=== PATIENT | male | born 1945 | race Two or more races ===

== ENCOUNTER → 2016-07-12 | Day surgery (SDC) | payer MEDICARE, MEDICAID ==
[~2016-07-12] VITALS: Ht 177.8 cm; Wt 119.0 kg
[~2016-07-12] MED LIST: ALEVE220 M1 PO; BACTRIM DS1 TAB PO; CARAFATE1 GM PO; CORDARONE,PACE200 MG PO; COREG12.5 MG PO; ELIQUIS5 MG PO; ENTRESTO 49 MG1 EACH PO; K-TAB ER20 MEQ PO; LASIX20 MG PO; LIPITOR80 MG PO; NASAL DECONGEST30 ML NOSE; OCUVITE EYE +1 EACH PO; SLEEP AID25 M1 PO; SPIRIVA HANDIHA1 KIT INH; SYMBICORT 160/41 KIT INH; TYLENOL WITH C1 EACH PO; TYLENOL/COD1 TAB PO
--- NOTE | ~2016-07-12 | OR ---
PATIENT'S NAME: JT WAGNER [facility] AGE: 71 Y [address] ROOM: [place] [address] LOCATION: [facility] [place] ADMIT DATE: 07/12/2016 OR/Procedure Report DISCHARGE DATE: FAMILY PHYSICIAN: John Chong MD ATTENDING PHYSICIAN: Joe Apple SURGEON: Joe Apple MD INK GRINDER: DATE OF PROCEDURE: 07/12/2016 PREOPERATIVE DIAGNOSIS: History of bladder cancer. POSTOPERATIVE DIAGNOSES: 1. Bladder cancer. 2. Bulbourethral stricture. PROCEDURE PERFORMED: Cystoscopy, DVIU, and TURBT with complicated Villaseñor placement. ANESTHESIA: MAC. COMPLICATIONS: None. INDICATION FOR PROCEDURE: The patient is a 71-year-old male with a long history of recurrent superficial bladder cancer. The patient is scheduled for routine followup cystoscopy in the OR. The patient refuses cystoscopy in office. DETAILS OF PROCEDURE: After informed consent was obtained, the patient was taken to the operating room. A MAC anesthetic was applied and he was placed in a dorsal lithotomy position. Cystoscope was introduced into the urethra where he was known to have a bulbourethral stricture that was unable to navigate the scope beyond. The cystoscope was removed and the urethrotome introduced. I then made cuts anteriorly at the 12 o'clock position into bleeding tissue until I was able to pass the urethrotome into the bladder. Upon inspecting the bladder, the patient was noted to have a lesion at the bladder neck and also on the posterior wall. The resectoscope was introduced and the 2 areas were resected. The bases were then fulgurated. The specimen was then emptied and sent to pathology for analysis. The bladder was reinspected and no other lesions were noted. A guidewire was then passed into the bladder. Next, a 20-Italian [place] tip Villaseñor catheter was placed over the guidewire into the bladder. The balloon was inflated and the bladder was drained. The patient tolerated the procedure well and was transferred to the recovery room in good condition. PATIENT'S NAME: JT WAGNER [facility] AGE: 71 Y [address] ROOM: [place] [id number] LOCATION: [facility] [place] ADMIT DATE: 07/12/2016 OR/Procedure Report DISCHARGE DATE: FAMILY PHYSICIAN: John Chong MD ATTENDING PHYSICIAN: Joe Apple MD LEW/prosper /[id number] CC: Smooth Chong MD d: 07/12/16 2154 t: 07/30/16 2303, OPERATIVE SUMMARY
[2016-07-12 10:58] LABS: BASOPHIL # 0.1 K/uL (0.0-0.2); BASOPHIL % 0.5 %; EOSINOPHIL # 0.4 K/uL (0.0-0.5); EOSINOPHIL % 3.6 %; HEMATOCRIT 43.5 % (37.0-53.0); HEMOGLOBIN 13.5 g/dL (11.0-16.0); IMMATURE GRANULOCYTE % 0.4 %; LYMPHOCYTE # 1.8 K/uL (0.8-4.0); LYMPHOCYTE % 17.6 %; MCH 29.8 pg (27.0-34.0); MONOCYTE # 0.8 K/uL (0.0-1.0); MONOCYTE % 7.9 %; MPV 10.3 fl (9.4-12.4); NEUTROPHIL # (ANC) 7.2 K/uL (1.4-9.0); NRBC % 0 /100WBC (0-0.00); PLATELET COUNT 218 K/uL (150-450); RBC 4.53 M/uL (3.50-5.50); RDW-CV 13.7 % (11.9-14.6); WBC 10.2 K/uL (4.0-11.0)
[2016-07-12 11:07] LABS: PROTIME 10.9 SECONDS (9.6-11.1); PTT 34 SECONDS (25-32)
[2016-07-12 11:13] LABS: ALBUMIN 3.5 gm/dL (3.5-5.0); ANION GAP 12.7 (10.0-19.0); CALCIUM 8.7 mg/dL (8.5-10.5); CREATININE 1.2 mg/dL (0.6-1.3); POTASSIUM 4.7 mMol/L (3.7-5.1); TOTAL BILIRUBIN 0.4 mg/dL (0.0-1.5); TOTAL PROTEIN 7.1 g/dL (6.0-8.4)
== END ==
LOC: GPOC 07-05 08:00 → GSDC 08:00
PROVIDERS: Urology
PROC: 0T7D8ZZ Dilation of Urethra, Via Natural or Artificial Opening Endoscopic (ICD-10-PCS; principal; 2016-07-12)
PROC: 0TBC8ZZ Excision of Bladder Neck, Via Natural or Artificial Opening Endoscopic (ICD-10-PCS; 2016-07-12)
PROC: 0TBB8ZZ Excision of Bladder, Via Natural or Artificial Opening Endoscopic (ICD-10-PCS; 2016-07-12)
DX: C67.4 Malignant neoplasm of posterior wall of bladder (principal); N35.8 Other urethral stricture; N40.1 Benign prostatic hyperplasia with lower urinary tract symptoms; I25.10 Atherosclerotic heart disease of native coronary artery without angina pectoris; I10 Essential (primary) hypertension; J45.909 Unspecified asthma, uncomplicated; E78.00 Pure hypercholesterolemia, unspecified
CPT/HCPCS: C1769; J1956; J2001; J7030